=== PATIENT | male | born 1990 ===

== ENCOUNTER 2022-12-17 06:30 | Day surgery (SDC) | payer OTHER ==
[~2022-12-17] VITALS: Ht 177.8 cm; Wt 102.1 kg
== END 2022-12-17 14:10 | disposition home or self-care (01) ==
LOC: CIR.AMB 06:30
PROVIDERS: ATTEND Orthopaedic Surgery
DX: S46.091A Other injury of muscle(s) and tendon(s) of the rotator cuff of right shoulder, initial encounter (principal); I10 Essential (primary) hypertension; Z20.822 Contact with and (suspected) exposure to COVID-19